=== PATIENT | female | born 1955 | race Asian ===

== ENCOUNTER → 2024-03-01 | Outpatient (CLI) | payer MEDICARE, MEDICAID, SELFPAY ==
--- NOTE | 2024-03-01 10:21 | XR_ITS ---
EXAMINATION: Cervical spine, 5 views Technique: Cervical spine AP, AP odontoid, lateral, bilateral obliques, 5 views Exam date and time: March 01, 2024 1056 hours INDICATIONS: Neck pain beginning several years ago radiating down the right arm FINDINGS: Straightening normal cervical lordosis Moderate disc narrowing C4-C5, C6-C7, advanced disc narrowing C5-C6 with posterior osteophyte formation Significant soft tissue carotid calcification Bilateral neural foraminal stenosis, mild at the C3-C4 C4-C5 and C6-C7 levels and moderate at C5-C6 Intact odontoid IMPRESSION: Advanced degenerative disc disease C5-C6 with moderate bilateral neural foraminal stenosis
== END | disposition home or self-care (01) ==
PROVIDERS: PCP Physician Assistant; Referring Provider Physician Assistant; Visit Provider Physician Assistant
DX: M50.322 Other cervical disc degeneration at C5-C6 level (principal); M48.02 Spinal stenosis, cervical region
CPT/HCPCS: 72050

== ENCOUNTER 2024-06-20 08:44 | Outpatient (RCR) | payer MEDICAID, SELFPAY ==
--- NOTE | 2024-06-20 10:51 | PT.OIERPT ---
PT OP Initial Eval Patient Information Outpatient Physical Therapy Treatment Date: 06/20/24 Visit Reasons: Low back pain Medical Diagnosis: Back Pain Treatment Dx #2: Back Pain Start of Care: 06/20/24 Date of Onset: 30 years ago Smoking Status Smoking Status: Never smoker Initial Assessment Subjective: Pt is a 68 y/o female reports of chronic back pain with intermittent pain down the legs R>L. Pt's xray showed severe lumbar DDD last 3 levels. No MRI has been done. Pt has limitation with sitting, standing, chores, self care, lifting, walking, and performing recreational activities. Objective: L/S AROM: all motions are WFL with pain in end range in all plane Hip PROM: all motions are WFL except IR Hip MMTs: grossly 3/5 Special Test (+) slump Assessment: Pt demonstrate back pain with mobility deficits leading to difficulty with ADLs. Pt will attempt physical therapy if pain persist Pt will be refer back to provider for further consultation. Short Term and [facility] Goals 1) Increase L/S AROM WFL in 6 wks to be able to perform chores 2) Decrease back pain to 3/10 in 6 wks to be able to sit and stand more than 30 mins 3) Increase core strength WFL in 6 wks to be able to perform recreational activities 4) Increase hip MMTs grossly to 4-/5 in 6 wks to be able to walk more than 30 mins 5) Indep with HEP Treatment Plan 1) Manual Therapy 2) Therapeutic Activities 3) Therapeutic Exercises 4) Modalities (ice, heat) Frequency and Duration: 2 x wk for 6 wks Certification Dates: 06/20/24 to 09/20/24 Procedure Charges OP PT Eval Mod Complex 30 minutes: Yes
== END 2024-06-25 23:59 | disposition home or self-care (01) ==
LOC: CPTX 08:44
PROVIDERS: PCP Physician Assistant; Referring Provider Physician Assistant; Visit Provider Physician Assistant
DX: M54.50 Low back pain, unspecified (principal); M79.605 Pain in left leg; M79.604 Pain in right leg; G89.29 Other chronic pain
CPT/HCPCS: 97162

== ENCOUNTER 2024-07-18 13:30 | Outpatient (RCR) | payer MEDICARE, MEDICAID, SELFPAY ==
--- NOTE | 2024-06-27 10:05 | PT.ODAYNRPT ---
PT Outpatient Daily Note OP Daily Note Outpatient Physical Therapy Treatment Date: 06/27/24 Visit Reasons: LOW BACK PAIN Subjective: Pt brought in by female who is interpreting. Objective: Please see flow sheet for ther ex list. Assessment: Pt performs interventions with good technique. Plan: Continue with POC. Length of Time (minutes) of Treatment: 30 Minutes Procedure Charges Therapeutic Exercise 30 minutes: Yes
--- NOTE | 2024-07-03 13:40 | PTNOTE_ITS ---
PT Outpatient Daily Note OP Daily Note Outpatient Physical Therapy Treatment Date: 07/03/24 Visit Reasons: LOW BACK PAIN Subjective: Pt's feels about the same. Pt continues to notice some numbness down her legs. Objective: Please see flow chart for list of ther ex performed Assessment: supine heat allowed patient to tolerate supine exercises. Minimal changes in pa in post PT session Plan: Continue with PT Length of Time (minutes) of Treatment: 30 Minutes Procedure Charges Therapeutic Exercise 30 minutes: Yes
--- NOTE | 2024-07-05 13:06 | PT.ODAYNRPT ---
PT Outpatient Daily Note OP Daily Note Outpatient Physical Therapy Treatment Date: 07/05/24 Visit Reasons: LOW BACK PAIN Subjective: Pt c/o back pain, pt came in with female visitor who interprets. Objective: Please see flow sheet for ther ex list. Assessment: Pt instructed to use B hand for feedback to perform posterior pelvic tilt exercise, pt able to replicate with good technique. Plan: Continue with pOc. Length of Time (minutes) of Treatment: 30 Minutes Procedure Charges Therapeutic Exercise 30 minutes: Yes
--- NOTE | 2024-07-12 13:36 | PT.ODAYNRPT ---
PT Outpatient Daily Note OP Daily Note Outpatient Physical Therapy Treatment Date: 07/12/24 Visit Reasons: LOW BACK PAIN Subjective: Pt reports LBP today. Objective: Please see flow sheet for ther ex list. Assessment: Decrease c/o LBP post STM, pt tolerated well. Plan: Continue with poC. Length of Time (minutes) of Treatment: 30 Minutes Procedure Charges Therapeutic Exercise 30 minutes: Yes
--- NOTE | 2024-07-18 13:46 | PT.ODS1RPT ---
PT OP Progress/Discharge Note Date of Service: 07/18/24 Progress Note/DC Note Progress Note/Discharge Note: DC Note Patient Information Visit Reasons: LOW BACK PAIN Medical Diagnosis: Back Pain Treatment Dx #1: Back Pain Service Discharge Date: 07/18/24 Status Subjective: Pt's back is about the same and continues to hurt. No change in leg pain lately. Due to pain Pt has limitation with sitting, standing, chores, self care, and performing recreational activities Objective: L/S AROM: all motions are WNL Hip PROM: all motions are WNL Hip MMTs: grossly 3+/5 Special Test (+) slump Assessment: Pt demonstrate functional spinal mobility and hip strength, however, no change in pain leading to difficulty with ADLs. Pt will no longer benefit from physical therapy due to minimal progress with goals. Recommend L/S MRI to help rule in/out nature of pain. Pt was instructed on HEP last session and educated to continue exercises to maintain overall mobility. Pt performed all exercises safely, thank you for your referrals. Plan: D/C home with HEP and follow up with MD Recommend L/S MRI Procedure Charges Therapeutic Exercise 30 minutes: Yes
== END 2024-07-25 23:59 | disposition home or self-care (01) ==
LOC: CPTX 13:30
PROVIDERS: PCP Physician Assistant; Referring Provider Physician Assistant; Visit Provider Physician Assistant
DX: M51.362 Other intervertebral disc degeneration, lumbar region with discogenic back pain and lower extremity pain (principal); R26.2 Difficulty in walking, not elsewhere classified
CPT/HCPCS: 97110

== ENCOUNTER → 2024-09-19 | Outpatient (CLI) | payer MEDICARE, MEDICAID, SELFPAY ==
--- NOTE | 2024-09-19 11:45 | XR_ITS ---
Examination: Screening digital mammography, bilateral Computer aided detection 3-D breast Tomosynthesis, bilateral Date and time of exam: September 19, 2024 1144 hours Compared to mammograms dating to 12/23/2016 Indication: Screening Technique: Nonmagnified MLO, CC views of the breasts to been obtained, reconstructed from 3-D Tomosynthesis images. R2 computer aided detection program utilized for evaluation of suspicious masses and/or abnormal calcifications. 3-D Tomosynthesis images obtained. Findings: Scattered areas of fibroglandular density. 6 mm focal asymmetry upper outer left breast Benign calcifications Impression: BI-RADS Category 0: Incomplete: Need additional imaging evaluation 6 mm focal asymmetry upper outer left breast, recommend follow-up spot tomographic views of this asymmetry as well as bilateral breast sonography to complete the workup
== END | disposition home or self-care (01) ==
PROVIDERS: PCP Physician Assistant; Referring Provider Physician Assistant; Visit Provider Physician Assistant
DX: Z12.31 Encounter for screening mammogram for malignant neoplasm of breast (principal); R92.323 Mammographic fibroglandular density, bilateral breasts; R92.1 Mammographic calcification found on diagnostic imaging of breast
CPT/HCPCS: 77063; 77067

== ENCOUNTER 2025-01-06 14:36 | Emergency (ER) | payer OTHER, MEDICAID, SELFPAY ==
[2025-01-06 15:08] VITALS: BP 115/68; PULSE 71; RESP 18; TEMP 37; O2SAT 97
[2025-01-06 15:12] VITALS: PULSE 80; RESP 18; O2SAT 97; BMI 24.7
--- NOTE | 2025-01-06 15:56 | EKG_ITS ---
[facility] Test Date: 2025-01-06 Pat Name: ANA LAURA GOMEZ Department: Room: - Gender: Female Electrodynamicist: : 1955 Requested By: Walt Vázquez Order Number: [id number] Reading MD: Walt Vázquez Measurements Intervals [place] Rate: 71 P: 45 MA: 189 QRS: 65 QRSD: 89 T: 60 QT: 417 QTc: 453 Interpretive Statements SINUS RHYTHM No previous ECG available for comparison /store/S0/[id number].pdf
--- NOTE | 2025-01-06 16:03 | PD.EDADULT ---
ED General RME/HPI General Chief complaint: Syncope / Near Syncope Stated complaint: WEAKNESS, DIZZINESS Time Seen by Provider: 01/06/25 15:56 Arrival date/time: 01/06/25 14:36 CC: Weakness HPI patient states she After attempting a bowel movement became weak and went down on her hands and knees with weakness onset 20 minutes prior to arrival. EMS reports stable vital signs and route the patient denies chest pain shortness of breath difficulty breathing headache nausea vomiting or diarrhea. Patient states for bowel movement color is normal . At approximately 1600, the patient states her weakness has improved but is still present. Related Data Home Medications ?Medication ?Instructions ?Recorded ?Confirmed HYPERTENSION MED 1 tab PO QAM ##0 06/29/15 Hydrocodone/Acetaminophen * (NORCO 1 tab PO BID PRN #0 tabs 06/29/15 7.5/325 *) SLEEPING PILL 1 tab PO HSPRN PRN INSOMNIA ##0 06/29/15 Previous Rx's ?Medication ?Instructions ?Recorded Hydrocodone/Acetaminophen * (NORCO 1 tab PO Q4H PRN PAIN #14 tabs 06/29/15 5/325 *) Allergies Allergy/AdvReac Type Severity Reaction Status Date / Time No Known Allergies Allergy Unknown Uncoded 06/29/15 16:33 Review of Systems Review of Systems Narrative Review of Systems: GEN: No fever, no chills, no weight loss EYES: No discharge, no visual changes, no pain HEENT: No ear pain, no congestion, no sore throat PULM: No shortness of breath, no cough, no congestion CV: No chest pain, no dyspnea on exertion, no palpitations GI: No nausea, no vomiting, no diarrhea, no pain, no constipation : No frequency, no urgency, no dysuria MUSC/SKEL: No joint pain, no back pain SKIN: No rash PSYCH: No hallucinations, no depression HEME/LYMPH: No easy bleeding or bruising tendencies NEURO: No weakness, no headache Past Medical History Past Medical History NEUROLOGIC: Positive Neurological Disorders (HAS HARD TIME REMEMBERING FORGETS EASY) CARDIAC: Positive Hypercholesterolemia and Hypertension; Negative Congestive Heart Failure RESPIRATORY: Negative Chronic Obstructive Pulmonary Disease (COPD) GENITOURINARY: Negative Renal Disease MUSCULOSKELETAL: Positive Arthritis ENDOCRINE: Negative Diabetes Mellitus Type 1 or Diabetes Mellitus Type 2 HEMATOLOGIC: Positive Anemia PSYCHO/SOCIAL: Positive Depression Surgical History SURGICAL: Positive Hysterectomy and Section Social History SMOKING STATUS: Never smoker ED Exam Narrative Physical exam: [General: Not in any acute distress Head normocephalic HEENT: Eyes pupils are PERRLA EOMs are intact mouth pink dry membranes uvula is midline swallow symmetrical. Within acceptable limits Neck is supple nontender Chest equal chest rise nontender to palpation Respiratory: Clear to auscultation no wheezes crackles or rubs CV: Rate rhythm is regular no murmurs rubs or clicks Abdomen is soft nontender no masses positive bowel sounds all 4 quadrants Back: No CVA tenderness no spinous process tenderness from cervical spine thoracic and lumbar spine Skin: Intact no petechiae rash induration ulceration or crepitus Extremities: Moving all extremity against resistance cap refill less than 2 seconds neurosensory intact Neuro: Awake alert oriented x3 Glascow coma 15 no focal deficits] Course Course Course Narrative: No significant findings, the patient has anemia but there are no old laboratory results for comparison. Quality Measures none Orders Category Date Time Status EKG (ED ONLY) *Do not use* NOW Care 01/06/25 15:56 Completed EKG (ED Only) Stat Exams 01/06/25 15:56 Draft B-Type Natriuretic Peptide Stat Lab 01/06/25 16:05 Completed CBC Stat Lab 01/06/25 16:05 Completed Comprehensive Metabolic Panel Stat Lab 01/06/25 16:05 Completed Drug Screen,Urine Stat Lab 01/06/25 16:20 Completed LDH (Lactate Dehydrogenase) Stat Lab 01/06/25 16:05 Completed Magnesium Stat Lab 01/06/25 16:05 Completed Partial Thromboplastin Time Stat Lab 01/06/25 16:05 Completed Prothrombin Time with INR Stat Lab 01/06/25 16:05 Completed Troponin I Stat Lab 01/06/25 16:05 Completed Urinalysis, C/S if Indicated Stat Lab 01/06/25 16:20 Completed Vital Signs Vital signs: Vital Signs Temperature 98.6 F 01/06/25 15:08 Pulse Rate 71 01/06/25 15:08 Respiratory Rate 18 01/06/25 15:08 Blood Pressure 115/68 01/06/25 15:08 Pulse Oximetry (%) 97 01/06/25 15:08 Oxygen Delivery Method Room Air 01/06/25 15:08 Discharge Plan Plan Patient Disposition: HOME (Self Care) Patient condition on transfer: Stable Prescriptions/Referrals Prescriptions/Med Rec: No Action HYPERTENSION MED 1 tab PO QAM Qty: 0 Hydrocodone/Acetaminophen * (NORCO 7.5/325 *) 1 TAB tablet 1 tab PO BID PRNQty: 0 SLEEPING PILL 1 tab PO HSPRN PRN (Reason: INSOMNIA) Qty: 0 Hydrocodone/Acetaminophen * (NORCO 5/325 *) 1 TAB tablet 1 tab PO Q4H PRN (Reason: PAIN) Qty: 14 0RF Rx Instructions: FOR PAIN Referrals: No Primary/Family,Physician [Primary Care Provider] - In 1 week Problem List Clinical Impression: Weakness Patient/Caregiver Discharge Instructions Education Materials: ED Weakness (Uncertain Cause) Print Language: Kittitian Stand Alone Forms: [employer] Award Info., Work/School Release, Patient Portal Info Letter VINOD/MARIANNA Supervising Physician VINOD/MARIANNA Supervising Physician: Walt Orellana ENP MDM Clinical Information Provided by: patient and EMS Medical Records reviewed [facility] and EMS Meds/Rx considered, not ordered None Labs/Rad/Tests considered, not ordered None Chronic Illness/Social Conditions Explain: Hypertension hyperlipidemia surgical history includes appendectomy and C-sections EKG Interpretation EKG #1: EKG Interpretation: EKG performed at 1610 shows a ventricular rate of 71 ME interval 189 QRS of 8 9 QTc of 439 is sinus rhythm. Labs Labs: interpreted by nd Lab(s) Interpretation(s): CBC shows no leukocytosis there is an anemia hemoglobin of 10.4 hematocrit of 31.3. No thrombocytopenia Coags within acceptable limits Coags within acceptable limits CMP shows no significant electrolyte imbalances other than a glucose of 118 no transaminitis or T. bili elevation Troponin and BNP are within acceptable limits UA shows turbid 1+ protein no signs of infection. UDS is negative. Imaging Imaging interpretation: none Medication Administration(s) none Diagnosis Differential Diagnosis ED Complaint MDM: Anemia UTI electrolyte imbalances
[2025-01-06 16:14] LABS: Basophils # (Auto) 0.0 Thou/mm3 (0.0-0.2); Basophils % (Auto) 1 % (0-2.5); Eosinophils # (Auto) 0.1 Thou/mm3 (0.0-0.5); Eosinophils % (Auto) 1 % (0-10); Hematocrit 31.3 % (36.0-46.0); Hemoglobin 10.4 g/dL (12.0-16.0); Immature Granulocytes Auto 0.02 Thou/mm3 (0.00-0.00); Lymphocytes # (Auto) 1.3 Thou/mm3 (1.0-4.8); Lymphocytes % (Auto) 16 % (10-50); Mean Corpuscular HGB Conc 33.2 g/dl (31.0-37.0); Mean Corpuscular Hemoglobin 26.4 pg (25.0-35.0); Mean Corpuscular Volume 79 fL (80-100); Monocytes # (Auto) 0.8 Thou/mm3 (0.0-0.8); Monocytes % (Auto) 10 % (0-12); Neutrophils # (Auto) 5.5 Thou/mm3 (1.8-7.7); Neutrophils % (Auto) 72 % (37-80); Nucleated Red Blood Cell # 0.00 Thou/mm3 (0.00-0.00); Nucleated Red Blood Cell % 0 /100 WBC (0); Platelet Count 257 Thou/mm3 (140-440); RDW Standard Deviation 37.8 fL (36.4-46.3); Red Blood Count 3.94 Miln/mm3 (4.00-5.20); White Blood Count 7.6 Thou/mm3 (3.6-11.0)
[2025-01-06 16:15] VITALS: BP 125/73; PULSE 82; RESP 14; TEMP 36.9; O2SAT 98
[2025-01-06 16:30] LABS: RBC,Urine 0 /hpf (0-3)
[2025-01-06 16:31] LABS: INR 1.0 (0.9-1.3); Partial Thromboplastin Time 24.0 Seconds (22.0-36.0); Prothrombin Time 11.0 Seconds (9.0-12.2)
[2025-01-06 16:32] LABS: Collection Type, Urine Clean Catch
[2025-01-06 16:37] LABS: B-Type Natriuretic Peptide < 20 pg/mL (0-100)
[2025-01-06 16:39] LABS: Alanine Aminotransferase 11 U/L (10-49); Albumin, Serum 4.2 gm/dL (3.4-4.8); Albumin/Globulin Ratio 1.5 (1.2-2.2); Alkaline Phosphatase 47 U/L (46-116); Anion Gap 10 (7-16); Aspartate Amino Transferase 19 U/L (0-34); BUN/Creatinine Ratio 12 Ratio (12-20); Bilirubin,Total 0.4 mg/dL (0.3-1.2); Blood Urea Nitrogen 15 mg/dL (9-23); Calcium 8.9 mg/dL (8.3-10.6); Calcium (Corrected) 8.9 mg/dL (8.5-10.1); Carbon Dioxide 27.0 mMol/L (20.0-31.0); Chloride 106 mMol/L (98-107); Creatinine (Component) 1.3 mg/dL (0.6-1.3); Estimated Creatinine Clearance 32.5 mL/min (>60); Globulin 2.8 gm/dL (2.3-3.5); Glucose 113 mg/dL (74-106); LDH (Lactate Dehydrogenase) 193 U/L (120-246); Magnesium 2.3 mg/dL (1.6-2.6); Osmolality,Calculated 286 (275-295); Potassium 4.2 mMol/L (3.4-5.1); Sodium 143 mMol/L (136-145); Total Protein 7.0 gm/dL (5.7-8.2); Troponin I < 0.002 ng/mL (0.0-0.045); eGFR 45 See Note
[2025-01-06 16:45] LABS: Amphetamine/Methamp Scrn,U Negative (Negative); Barbiturate Screen,Urine Negative (Negative); Benzodiazepines Screen,Urine Negative (Negative); Benzoylecgonine Screen, Ur Negative (Negative); Fentanyl Screen,Urine Negative (Negative); Opiate Screen,Urine Negative (Negative); THC Screen,Urine Negative (Negative)
[2025-01-06 16:52] LABS: Bacteria,Urine Rare; Bilirubin,Urine Negative (Negative); Blood,Urine Negative (Negative); Clarity,Urine Turbid (Clear/Hazy); Color,Urine Yellow (Lt Yel-Yel); Culture Indicated,Urine Not Indicated; Glucose, Urine Negative (Negative); Hyaline Casts,Urine 4 /hpf (0-1); Ketones,Urine Negative (Negative); Leukocyte Esterase,Urine Negative (Negative); Nitrite,Urine Negative (Negative); PH,Urine 6.5 (5.0-7.0); Protein,Urine 1+ (Neg - Trace); Specific Gravity,Urine 1.022 (1.001-1.035); Squamous Epithelial Cell,Urine 4 /hpf (0-5); Urobilinogen,Urine Negative mg/dL (0.0-1.0); WBC,Urine 4 /hpf (0-5)
[2025-01-06 18:10] VITALS: BP 126/72; PULSE 89; TEMP 37; O2SAT 96
[2025-01-06 18:21] VITALS: BP 126/72; PULSE 87; RESP 19; TEMP 36.9; O2SAT 95
== END 2025-01-06 18:51 | disposition home or self-care (01) ==
PROVIDERS: Registered Nurse General Practice; Emergency Provider Family Medicine
DX: R53.1 Weakness (principal); E78.5 Hyperlipidemia, unspecified; I10 Essential (primary) hypertension
CPT/HCPCS: 36415; 80053; 80307; 81001; 83615; 83735; 83880; 84484; 85025; 85610; 85730; 93005; 99283

== ENCOUNTER → 2025-03-07 | Outpatient (CLI) | payer OTHER, MEDICAID, SELFPAY ==
--- NOTE | 2025-03-07 13:00 | XR_ITS ---
Examination: Breast ultrasound complete, bilateral Date and time of exam: March 07, 2025, 1300 hours INDICATIONS: Mammogram 05/22/2024 6 mm focal asymmetry upper outer left breast Technique: Real-time grayscale ultrasonographic imaging bilateral breasts, including all 4 quadrants as well as nipple retroareolar and axillary regions. Findings: Sonographic images right breast Retroareolar cyst 3 x 3 mm No solid nodules Sonographic images left breast 9:00 cyst 3 x 3 mm No solid nodules IMPRESSION: BI-RADS Category 2: Benign findings
== END | disposition home or self-care (01) ==
PROVIDERS: PCP Physician Assistant; Referring Provider Physician Assistant; Visit Provider Physician Assistant
DX: R92.2 Inconclusive mammogram (principal)
CPT/HCPCS: 76641